=== PATIENT | male | born 1985 ===

== ENCOUNTER 2017-01-09 16:00 | Emergency (ER) | payer MEDICAID ==
[2017-01-09 16:09] VITALS: BP 121/89; PULSE 99; RESP 16; TEMP 98.2; O2SAT 99
[2017-01-09] MEDS ORDERED: TDAP Vaccine 0.5 mL Syr IM ONE (16:28)
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
--- NOTE | 2017-01-09 18:23 | CT ---
PROCEDURE: CT Cervical Spine without contrast HISTORY: <pain, trauma> COMPARISON: None available. TECHNIQUE: Axial computed tomography images were obtained of the cervical spine without the use of intravenous contrast. Coronal and sagittal reformatted images were created and reviewed. Radiation dose: Total exam DLP = 513.97 mGy-cm. FINDINGS: VERTEBRAE: No fracture. Normal alignment. No destructive bony lesion. DISCS/SPINAL CANAL/NEURAL FORAMINA: No significant central canal or neural foraminal stenosis. Discs heights are grossly preserved. PARASPINAL SOFT TISSUES: Unremarkable. OTHER FINDINGS: None. IMPRESSION: No CT evidence of acute displaced fracture or subluxation.
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
== END 2017-01-09 19:55 ==
LOC: H.ER 16:00
DX: S09.90XA Unspecified injury of head, initial encounter (principal); S05.12XA Contusion of eyeball and orbital tissues, left eye, initial encounter; F10.10 Alcohol abuse, uncomplicated; Z86.59 Personal history of other mental and behavioral disorders; S00.81XA Abrasion of other part of head, initial encounter; Y09 Assault by unspecified means
CPT/HCPCS: 70450; 70480; 72125; 90471; 90715; 99282; G0480

== ENCOUNTER 2017-01-17 15:12 | Emergency (ER) | payer MEDICAID ==
[2017-01-17 15:31] VITALS: BP 143/93; PULSE 103; RESP 18; TEMP 98.4; O2SAT 100
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
== END 2017-01-17 17:37 | disposition home or self-care (01) ==
LOC: H.ER 15:12
DX: R07.9 Chest pain, unspecified (principal); S09.93XA Unspecified injury of face, initial encounter; Z86.59 Personal history of other mental and behavioral disorders; Y04.8XXA Assault by other bodily force, initial encounter

== ENCOUNTER 2017-02-16 16:54 | Emergency (ER) | payer MEDICAID, MEDICARE ==
[2017-02-16 16:56] VITALS: BMI 17.2
[2017-02-16 17:13] VITALS: RESP 16; TEMP 98.1; O2SAT 100
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
[2017-02-16 18:20] LABS: BASO # 0.1 K/uL (0.0-0.2); BASO % 0.7 % (0.0-2.0); EOS # 0.2 K/uL (0.0-0.7); EOS % 1.6 % (0.0-4.0); HEMATOCRIT 45.4 % (35.0-51.0); LYMPH # 2.6 K/uL (1.0-4.3); MEAN CORPUSCULAR HGB CONC 33.7 g/dL (33.0-37.0); MEAN PLATELET VOLUME 9.5 fl (7.2-11.7); MONO # 0.8 K/uL (0.0-0.8); MONO % 7.2 % (0.0-10.0); NEUT # 7.7 K/uL (1.8-7.0); NEUT % 67.5 % (50.0-75.0); WHITE BLOOD COUNT 11.5 K/uL (4.8-10.8)
[2017-02-16 18:38] LABS: ALB/GLOB RATIO 1.2 (1.0-2.1); ALCOHOL SERUM < 10 mg/dl (0-10); ALKALINE PHOSPHATASE 77 U/L (38-126); ALT/SGPT 21 U/L (21-72); AST/SGOT 22 U/L (17-59); BILIRUBIN,TOTAL 0.5 mg/dl (0.2-1.3); BLOOD UREA NITROGEN 11 mg/dl (9-20); CALCIUM 9.7 mg/dL (8.4-10.2); CARBON DIOXIDE 28 mmol/L (22-30); CHLORIDE 103 mmol/L (98-107); GFR AFRICAN-AMERICAN > 60; GLUCOSE,RANDOM 111 mg/dL (75-110); POTASSIUM 3.9 MMOL/L (3.6-5.0); SODIUM 145 mmol/l (132-148); TOTAL PROTEIN 7.7 G/DL (6.3-8.2)
--- NOTE | 2017-02-16 18:42 | CT ---
PROCEDURE: CT HEAD WITHOUT CONTRAST. HISTORY: r/o bleed COMPARISON: 01/09/2017 TECHNIQUE: Axial computed tomography images were obtained through the head/brain without intravenous contrast. Radiation dose: Total exam DLP = 869 mGy-cm. This CT exam was performed using one or more of the following dose reduction techniques: Automated exposure control, adjustment of the mA and/or kV according to patient size, and/or use of iterative reconstruction technique. FINDINGS: HEMORRHAGE: No intracranial hemorrhage. BRAIN: No mass effect or edema. No atrophy or chronic microvascular ischemic changes. VENTRICLES: Unremarkable. No hydrocephalus. CALVARIUM: Unremarkable. PARANASAL SINUSES: Unremarkable as visualized. No significant inflammatory changes. MASTOID AIR CELLS: Unremarkable as visualized. No inflammatory changes. OTHER FINDINGS: None. IMPRESSION: No acute findings
[2017-02-16 18:45] VITALS: BP 131/79; PULSE 81
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
== END 2017-02-16 20:44 | disposition home or self-care (01) ==
LOC: H.ER 16:54
DX: F07.81 Postconcussional syndrome (principal); F20.9 Schizophrenia, unspecified; F31.9 Bipolar disorder, unspecified; F41.9 Anxiety disorder, unspecified; R42 Dizziness and giddiness
CPT/HCPCS: 70450; 80053; 85025; 99285; G0480